=== PATIENT | female | born 1960 | race Caucasian/White ===

== ENCOUNTER → 2016-10-17 | Outpatient (CLI) | payer BC ==
[~2016-10-17] MED LIST: AZITTAB PO; BCPILLS PO; HYCUDL5 PO
--- NOTE | 2016-10-17 09:44 | DIAGNOSTIC IMAGING REPORT ---
CHEST 2 VIEWS ROUTINE CLINICAL HISTORY: Cough. History of pneumonia. COMPARISON STUDY: October 2007 FINDINGS: The cardiac and mediastinal contours are normal. There is no evidence of focal pulmonary consolidation. There is no evidence of failure. No pleural effusions are visualized.[ IMPRESSION: No active disease in the chest. Electronically signed by: Fredy Lopez M.D. 10/17/2016 9:43 AM Dictated Date/Time: 10/17/2016 9:42 AM
[2016-10-17 10:08] LABS: BASO % 0.6 %; BASO ABS # 0.04 K/uL (0-0.2); COMPLETE YES; HEMATOCRIT 48.7 % (37-47); IG% 0.1 %; LYMPH % 24.1 %; LYMPH ABS # 1.69 K/uL (1.2-3.4); MEAN CELL VOLUME 91.2 fL (80-100); MEAN CORPUSCULAR HEMOGLOBIN 32.8 pg (25-34); MEAN CORPUSCULAR HGB CONC 35.9 g/dl (32-36); MONO % 11.3 %; NEUT % 59.9 %; PLATELET COUNT 267 K/uL (130-400); RED BLOOD COUNT 5.34 M/uL (4.2-5.4); WHITE BLOOD COUNT 7.02 K/uL (4.8-10.8)
[2016-10-17 10:33] LABS: BLOOD UREA NITROGEN 16 mg/dl (7-18); CALCIUM 9.7 mg/dl (8.5-10.1); CARBON DIOXIDE 29 mmol/L (21-32); CHLORIDE 107 mmol/L (98-107); CREATININE 0.89 mg/dl (0.60-1.20); GLUCOSE 87 mg/dl (70-99); POTASSIUM 4.3 mmol/L (3.5-5.1); SODIUM 143 mmol/L (136-145)
== END | disposition home or self-care (01) ==
LOC: C.RAD 09:07
PROVIDERS: ATTEND Nurse Practitioner Family
DX: R05 Cough (principal)

== ENCOUNTER → 2017-05-03 | Outpatient (CLI) | payer OTHER, BC ==
--- NOTE | 2017-05-03 12:09 | DIAGNOSTIC IMAGING REPORT ---
L-SPINE MIN 4 VIEWS ROUTINE CLINICAL HISTORY: FALL low back pain COMPARISON STUDY: No previous studies for comparison. FINDINGS: There is marked disc space narrowing at the L4-5 level. There is a grade 1 spondylolisthesis of L4 and L5. No acute fractures are visualized. IMPRESSION: 1. No acute fractures 2. Advanced degenerative changes at the L4-5 level. Grade 1 spondylolisthesis of L4 on L5. Electronically signed by: Fredy Lopez M.D. 05/03/2017 12:07 PM Dictated Date/Time: 05/03/2017 12:07 PM
== END | disposition home or self-care (01) ==
LOC: C.RAD1850 11:34
PROVIDERS: ATTEND Nurse Practitioner Adult Health
DX: M54.5 Low back pain (principal); M43.16 Spondylolisthesis, lumbar region; W19.XXXA Unspecified fall, initial encounter